=== PATIENT | female | born 1990 | race African-American/Black ===

== ENCOUNTER 2020-06-13 09:07 | Emergency (ER) | payer BC, SELFPAY ==
--- NOTE | ~2020-06-13 | XR_ITS ---
EXAMINATION: XR chest 2V DATE: 06/13/2020 09:24 INDICATION: Chest pain with deep breath. TECHNIQUE: Frontal and lateral views of the chest were obtained. COMPARISON: None. FINDINGS: The chest demonstrates clear lungs without pneumonia, pleural effusion, or pneumothorax. Th e heart size is normal. IMPRESSION: 1. No acute cardiopulmonary disease. Reviewed, dictated and finalized at location A.
[2020-06-13 09:14] VITALS: BP 121/69; PULSE 70; RESP 16; TEMP 36.6; O2SAT 100
[2020-06-13 09:28] VITALS: BP 121/69; PULSE 70; RESP 16; TEMP 36.6; O2SAT 100
--- NOTE | 2020-06-13 09:28 | ED.URI ---
HPI - URI/Sore Throat General Chief Complaint: Upper Respiratory Infection Stated Complaint: chest pain with deep breathing Source: patient and RN notes reviewed Limitations: no limitations History of Present Illness HPI Narrative: The patient, non-smoker/nondrinker, presents with chest tightness. Patient states her mom sent her in for 2-day history of bilateral upper chest tightness . Symptoms are mild, there is no pain at rest and only with deep breathing or bending. No fever, chills, shortness of breath, wheezing/sneezing, calf pain/edema, BCP use, URI?sinusitis, sore throat, earache. 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 She is very active and has been working out, but no upper body exercises and is unlike previous chest discomforts. Advised to go to higher-level care facility to higher level testing if not improved , because for early diagnosis of serious problems [acute coronary syndrome, PE, etc.], clear specific symptoms do not develope until later Related Data Allergies Allergy/AdvReac Type Severity Reaction Status Date / Time No Known Allergies Allergy Mild Verified 11/26/07 17:38 Review of Systems Review of Systems: Narrative: General/Constitutional: No weight loss,fever Eyes: N0: Redness,discharge Ears/Nose/Throat: No: Epistaxis,ear discharge Respiratory: Denies: Hemoptysis Gastrointestinal: No Vomiting, Bleeding-rectal Skin: No Lumps, eruption Neurologic: No Focal Weakness,Sz Hematologic: Denies: Petechiae/Purpura Psychiatric: No: Suicida ideationl All Other Systems: Reviewed and Negative [facility] Comments At time of signature, agree with nursing past medical, surgical, social and family history. There is no relevant family history pertinent to the presenting complaint Exam Narrative: Exam Narrative: General Appearance: Well appearing, conjunctiva clear Ears: External ear normal Nose: Normal nose Mouth/Throat: Normal appearing, Normal lips Neck: Supple Respiratory: Airway patent, No respiratory distress Cardiovascular: RRR, nontender chest wall Musculoskeletal: Full ROM, no calf pain/edema Skin: Warm, Dry Neurological: A&O x3, normal affect Course Course Emergency Course: EKG sinus rhythm at 59, CA 0.139, QRS 0.073 [place] 20 Films visualized, interpreted by radiologist, agree, normal see report Vital Signs Vital signs: Vital Signs Temperature 98 F 06/13/20 09:14 Pulse Rate 70 06/13/20 09:14 Respiratory Rate 16 06/13/20 09:14 Blood Pressure 121/69 06/13/20 09:14 Pulse Oximetry 100 06/13/20 09:14 Temperature 98 F 06/13/20 09:28 Pulse Rate 70 06/13/20 09:28 Respiratory Rate 16 06/13/20 09:28 Blood Pressure 121/69 06/13/20 09:28 Pulse Oximetry 100 06/13/20 09:28 Discharge Plan Discharge Clinical Impression: Chest pain, pleuritic Patient Disposition: Home, Self-Care Condition: Stable Prescriptions: New azithromycin 250 mg tablet See Rx Instructions .ROUTE .COMPLEX Qty: 6 RF: 0 indomethacin 50 mg capsule 50 mg PO BID Qty: 20 RF: 1 Other Ambulatory Orders: SARS-CoV-2 RNA, Qual RT-PCR (Routine) Location: Determined by Patient Ordered By: Rolan Maher Follow-up/Referrals: PHYSICIAN,TRANSFER MAN [Primary Care Provider] -
--- NOTE | 2020-06-13 09:51 | ECG_ITS ---
Measurements Intervals [place] Rate: 59 P: -3 IA: 139 QRS: 17 QRSD: 73 T: 24 QT: 407 QTc: 404 Interpretive Statements SINUS BRADYCARDIA WITH SINUS ARRHYTHMIA INCOMPLETE RIGHT BUNDLE BRANCH BLOCK BORDERLINE ECG Electronically Signed On 06-13-2020 10:59:38 CDT by Hudson Hanson D.O.
== END 2020-06-13 10:34 | disposition home or self-care (01) ==
PROVIDERS: Emergency Provider Emergency Medicine
DX: R07.81 Pleurodynia (principal); I45.10 Unspecified right bundle-branch block
CPT/HCPCS: 71046; 93005; 99213; G0463

== ENCOUNTER 2021-02-12 13:01 | Emergency (ER) | payer BC, SELFPAY ==
[2021-02-12 13:06] VITALS: BP 114/76; PULSE 78; RESP 16; TEMP 36.7; O2SAT 99
--- NOTE | 2021-02-12 13:25 | ED.URI ---
HPI - URI/Sore Throat General Chief Complaint: Upper Respiratory Infection Stated Complaint: COUGH/TIGHT CHEST Time Seen by Provider: 02/12/21 13:25 Source: patient and RN notes reviewed Mode of arrival: ambulatory Limitations: no limitations History of Present Illness HPI Narrative: 30-year-old female presents with concern for 2 to 3-day history of cough, chest congestion and chest tightness, reports left ear canal pain. She reports scratchy throat, denies nasal congestion or sore throat. Reports last night she felt hot and sweaty, she did not take her temperature. She has been vaccinated for Covid. MD elicited complaint: cough and other (Chest congestion) Related Data Allergies Allergy/AdvReac Type Severity Reaction Status Date / Time No Known Allergies Allergy Mild Verified 11/26/07 17:38 Review of Systems Review of Systems: CONSTITUTIONAL: Denies chills. Reports malaise, sweats, possible fever. EYES: Denies visual changes, redness, or discharge. ENT: Denies rhinorrhea, congestion, sinus pain, and sore throat. Reports left ear canal pain CARDIOVASCULAR: Denies chest pain, palpitations, or edema. RESPIRATORY: Reports cough, chest congestion and tightness. Denies dyspnea. GASTROINTESTINAL: Denies abdominal pain, nausea, vomiting, diarrhea SKIN: Denies rash or itching. MUSCULOSKELETAL: Denies myalgia. NEUROLOGIC: Denies headache. All systems reviewed & are unremarkable except as noted in HPI and below PMFSH Comments At time of signature, agree with nursing past medical, surgical, social and family history. There is no relevant family history pertinent to the presenting complaint Exam Narrative: GENERAL: Well-appearing, well-nourished, and in no acute distress. HEAD: Normocephalic EYES: PERRLA, conjunctivae clear ENT: Nares alhaji, no discharge. Mucous membranes moist. TM pearly jeffries with dull light reflex bilaterally; left tragal tenderness with external auditory canal erythema and edema. Oropharynx not erythematous without lesions. Tonsils not enlarged and without exudate, no drooling, no hoarseness, no trismus, uvula midline. NECK: Supple. No lymphadenopathy CHEST: Clear to auscultation, breath sounds equal. No wheezing, rhonchi, rales, or stridor. No respiratory distress, speaks in full sentences. HEART: Regular rate and rhythm. No murmur heard. SKIN: Warm, dry, no rash. NEURO: Alert and oriented x3. PSYCH: Normal mood and affect Course Course Emergency Course: Patient is aware of diagnosis, understands and agrees to treatment plan. Anticipatory guidance given. Patient agrees to follow-up as directed and is aware of reasons to seek care at the emergency department. Portions of this record may have been created with voice recognition software Vital Signs Vital signs: Vital Signs Temperature 98.1 F 02/12/21 13:06 Pulse Rate 78 02/12/21 13:06 Respiratory Rate 16 02/12/21 13:06 Blood Pressure 114/76 02/12/21 13:06 Pulse Oximetry 99 02/12/21 13:06 Temperature 98.1 F 02/12/21 13:06 Pulse Rate 78 02/12/21 13:06 Respiratory Rate 16 02/12/21 13:06 Blood Pressure 114/76 02/12/21 13:06 Pulse Oximetry 99 02/12/21 13:06 Reviewed. MDM - URI/Sore Throat MDM Narrative Medical decision making narrative: Differential diagnosis considered: Forman virus, strep pharyngitis, allergic rhinitis, upper respiratory tract infection, sinusitis, rhinosinusitis, nasopharyngitis. viral pharyngitis, otitis media, otitis externa, pneumonia, bronchitis, viral cough syndrome, viral syndrome, and influenza. Exam findings show no acute concerns or changes; patient is non-toxic appearing and is in no distress. Patient is appropriate for outpatient treatment and follow-up. Lab Data Attestation: I reviewed the patient's lab results. Critical Care Time Critical Care Time Critical Care Time: No Discharge Plan Discharge Clinical Impression: Otitis externa Qualifiers: Otitis externa type: unspecified type Chron
== END 2021-02-12 13:49 | disposition home or self-care (01) ==
PROVIDERS: Emergency Provider Nurse Practitioner
DX: H60.502 Unspecified acute noninfective otitis externa, left ear (principal); Z20.822 Contact with and (suspected) exposure to COVID-19
CPT/HCPCS: 87426; 99213; C9803; G0463

== ENCOUNTER 2021-02-15 11:25 | Emergency (ER) | payer BC, SELFPAY ==
--- NOTE | 2021-02-15 11:34 | ED.EAR ---
HPI - Ear Problem General Chief complaint: Ear Stated complaint: Ear swelling Time Seen by Provider: 02/15/21 11:34 Source: patient, family and RN notes reviewed History of Present Illness HPI Narrative: Patient is a 30-year-old female who presents the urgent care with complaints of left ear swelling, inability to hear out of the ear. Patient states that she was seen at the urgent care on Thursday for upper respiratory symptoms and they gave her ciprofloxacin eardrops. Patient states that she was unable to afford the eardrops and now her ear has become increased in swelling and pain. Patient denies of any fevers, nausea or vomiting. Denies any other upper respiratory complaints. Patient has been using [id number] pain medication for pain relief. No other acute complaints. No acute distress noted. Patient aware of the plan of care. Some parts of this dictation were generated by voice recognition software and may contain typographical and/or grammatical inaccuracies. Related Data Allergies Allergy/AdvReac Type Severity Reaction Status Date / Time No Known Allergies Allergy Mild Verified 02/15/21 11:41 Review of Systems Review of Systems: CONSTITUTIONAL: Denies fever, chills, or sweats. EYES: Denies visual changes, redness, or discharge. ENT: Denies rhinorrhea, congestion, sore throat. Reports of left ear pain and swelling with inability to hear out of the left ear CARDIOVASCULAR: Denies chest pain, palpitations, or edema. RESPIRATORY: Denies cough or dyspnea. GASTROINTESTINAL: Denies abdominal pain, nausea, vomiting, or diarrhea. GENITOURINARY: Denies dysuria or hematuria. SKIN: Denies rash or itching. MUSCULOSKELETAL: Denies back pain, joint pain, or myalgia. NEUROLOGIC: Denies headache, numbness, or weakness. All other systems reviewed are negative, except as documented in HPI. PMFSH Comments At the time of my signature, I reviewed and agree with the nursing past medical, surgical, social, and family history. There is no relevant family history pertinent to the patient complaint. Exam Narrative: GENERAL: This is a well-nourished, well-developed patient, in no apparent distress. HEAD: normocephalic, atraumatic. EYES: PERRL. Sclera clear/white. Vision is grossly intact. EARS: Right external ears normal, right auditory canals clear and without drainage, right TM normal without perforation. Moderate to severe edema/erythema with significant yellow drainage from the left ear canal. Mild to moderate erythema and edema to the left external ear. Hearing grossly intact. NOSE: External nose normal with no obvious nasal discharge, nares without redness, no rhinorrhea. THROAT: Mucous membranes moist, posterior pharynx clear. Mild postnasal drainage NECK: Neck supple CARDIOVASCULAR: Regular rate and rhythm without murmurs, gallops, or rubs. RESPIRATORY: Clear to auscultation. Breath sounds equal bilaterally. No wheezes, rales, or rhonchi. SKIN: warm, intact with no suspicious lesions or rash, good texture and turgor. NEURO: awake, alert, and oriented to person, place and time. There were no obvious focal neurologic abnormalities. EXTREMITIES: No clubbing, cyanosis, or edema. Course Vital Signs Vital signs: Vital Signs Temperature 97.6 F 02/15/21 11:45 Pulse Rate 85 02/15/21 11:45 Respiratory Rate 12 02/15/21 11:45 Blood Pressure 112/88 02/15/21 11:45 Pulse Oximetry 100 02/15/21 11:45 Temperature 97.6 F 02/15/21 11:45 Pulse Rate 85 02/15/21 11:45 Respiratory Rate 12 02/15/21 11:45 Blood Pressure 112/88 02/15/21 11:45 Pulse Oximetry 100 02/15/21 11:45 Reviewed Medical Decision Making MDM Narrative Medical decision making narrative: Advised the patient to complete the oral antibiotic regimen as prescribed. Be sure to eat and drink with the medication. May use a cool or warm wash rag to the outside of the ear as needed for comfort. Use the eardrops to the affected ear as directed, wipin
[2021-02-15 11:45] VITALS: BP 112/88; PULSE 85; RESP 12; TEMP 36.4; O2SAT 100
== END 2021-02-15 12:22 | disposition home or self-care (01) ==
PROVIDERS: Emergency Provider Nurse Practitioner Family
DX: H60.92 Unspecified otitis externa, left ear (principal)
CPT/HCPCS: 99213; G0463

== ENCOUNTER 2021-03-20 16:41 | Emergency (ER) | payer BC, SELFPAY ==
--- NOTE | ~2021-03-20 | US_ITS ---
EXAMINATION: US OB <= 14 weeks fetus EXAM DATE: 03/20/2021 17:36 INDICATION: Low abdominal pain, . 1st trimester. TECHNIQUE: Pelvic obstetrical transabdominal sonogram was performed by a technologist. There are mu ltiple grayscale and Doppler images available for interpretation. There are no earlier studies of th is gestation for comparison. FINDINGS: Uterus measures 8.1 x 6.0 x 4.8 cm. There is intrauterine gestation sac. pole with heart rate confirmed at 115 beats per minute. The 3 mm crown-rump length corresponds to estimated ge stational age by ultrasound of 6 weeks 0 days, estimated date of confinement 11/13. Yolk sac is ident ified. There is small to moderate size subchorionic hemorrhage measuring 2 cm in diameter by 0.8 cm in thickness. The ovaries are identified, morphologically normal with Doppler flow confirmed. IMPRESSION: Live intrauterine gestation, small to moderate size subchorionic hematoma. Reviewed, dictated and finalized at location G. N NURSE IMPRESSION: Live intrauterine gestation, small to moderate size subchorionic h ematoma.
[2021-03-20 16:48] VITALS: BP 127/85; PULSE 93; RESP 17; TEMP 36.4; O2SAT 99
[2021-03-20 17:10] LABS: Basophils Percent Auto 0.3 % (0.2-1.2); Eosinophils Absolute Auto 0.1 K/mm3 (0-0.3); Hematocrit 38.6 % (37.0-47.0); Hemoglobin 12.9 g/dL (12.0-15.0); Immature Granulocyte Absolute 0.01 K/mm3 (0.00-0.031); Immature Granulocyte Percent A 0.1 % (0-0.5); Lymphocytes Absolute Auto 2.59 K/mm3 (0.9-3.2); Lymphocytes Percent Auto 35.6 % (18.3-44.2); Mean Corpuscular HGB Conc 33.4 g/dl (32-36); Mean Corpuscular Hemoglobin 32.2 pg (26-34); Mean Corpuscular Volume 96.3 fl (80-100); Monocytes Absolute Auto 0.6 K/mm3 (0.1-0.6); Monocytes Percent Auto 8.1 % (2.6-8.5); Neutrophils Percent Auto 54.9 % (45.5-73.1); Platelet Count Result 215 k/mm3 (150-375); Red Blood Count 4.01 M/mm3 (4.2-5.4); Red Cell Distribution Width 12.1 % (11.5-14.5); White Blood Count 7.3 K/mm3 (4.5-10.0)
[2021-03-20 17:22] LABS: Alanine Aminotransferase 14 U/L (4-35); Albumin Level 4.6 g/dL (3.5-5.1); Alkaline Phosphatase 46 U/L (38-126); Anion Gap 5 mmol/L (8-16); Aspartate Amino Transferase 22 U/L (14-36); Bilirubin,Total 0.4 mg/dL (0.2-1.3); Blood Urea Nitrogen 13 mg/dL (7-17); Calcium 9.6 mg/dL (8.4-10.2); Carbon Dioxide 26 mmol/L (22-30); Chloride 104 mmol/L (98-107); Estimated CRCL calculation 92 ml/min; Estimated Glomerular Filt Rate > 60; Glucose 92 mg/dL (65-110); Lipase 78 U/L (23-300); Potassium 3.5 mmol/L (3.4-5.0); Sodium 135 mmol/L (137-145)
[2021-03-20 17:23] LABS: Add Urine Microscopic? NO; Appearance Urine Clear (Clear); Bilirubin Urine Negative (Negative); Blood Urine Negative (Negative); Color Urine Yellow (Yellow); Glucose Urine UA Negative (Negative); Ketones Urine Negative (Negative); Leukocyte Esterase Ur Negative LEU/UL (Negative); Nitrate Urine Negative (Negative); Protein Urine Negative (Negative); Specific Grav Ur 1.026 (1.001-1.035); Urobilinogen Urine Negative mg/dL (<2.0)
--- NOTE | 2021-03-20 17:51 | ED.ABDPAIN ---
HPI - Abdominal Pain General Chief Complaint: Abdominal Pain Stated Complaint: abd pain Time Seen by Provider: 03/20/21 16:47 Source: patient Mode of arrival: ambulatory Limitations: no limitations History of Present Illness HPI narrative: 30-year-old otherwise healthy here with the complaints of lower abdominal pain since early this morning. She denies any nausea, vomiting or diarrhea. No history of fever or chills. She denies urinary symptoms. She said she is in with the same partner for last 9 years has never been before. She denies any vaginal discharge or bleeding. MD elicited complaint: abdominal pain Pertinent past history: none Onset (ago): day(s) (1) Pain Consistency: constant Location: suprapubic Severity: moderate Quality: aching Radiation: none Migration to: no migration Relieving factors: nothing Related Data Home Medications Medication Instructions Recorded Confirmed No Home Medications 03/20/21 03/20/21 Allergies Allergy/AdvReac Type Severity Reaction Status Date / Time No Known Allergies Allergy Mild Verified 03/20/21 16:51 Review of Systems Review of Systems: All systems reviewed & are unremarkable except as noted in HPI and below Constitutional: Constitutional: Reports no additional constitutional complaints Eyes: Eyes: Reports no additional eye complaints ENT: Reports system reviewed and no additional complaints, except as documented Cardiovascular: Cardiovascular: Reports no additional cardiovascular complaints Respiratory: Respiratory: Reports no additional respiratory complaints Gastrointestinal: Gastrointestinal: Reports as per HPI Musculoskeletal: Musculoskeletal: Reports no additional musculoskeletal complaints Integumentary/Breasts: Skin/Breast: Reports system reviewed and no additional complaints, except as docu Neurologic: Reports system reviewed and no additional complaints, except as documented Exam Narrative: GENERAL: Well-appearing, well-nourished, and in no acute distress. HEAD: Normocephalic, atraumatic. EYES: PERRLA and EOMI. NECK: Supple. CHEST: Clear to auscultation. No respiratory distress. HEART: Regular rate and rhythm. No murmur heard. Normal peripheral pulses. ABDOMEN: Soft, nontender, nondistended, normal active bowel sounds. EXTREMITIES: Normal range of motion. No edema. SKIN: Warm, dry, no rash. NEURO: No focal deficits. Alert and oriented x3. PSYCH: Normal mood and affect. Course Course Emergency Course: Inform patient about her lab work, ultrasound findings. Advised her to drink plenty of fluids as tolerated take Tylenol as needed for pain. Follow-up with DIRECTOR OF ATHLETICS. Vital Signs Vital signs: Vital Signs Temperature 36.4 C 03/20/21 16:48 Pulse Rate 93 03/20/21 16:48 Respiratory Rate 17 03/20/21 16:48 Blood Pressure 127/85 03/20/21 16:48 Pulse Oximetry 99 03/20/21 16:48 Temperature 36.4 C 03/20/21 16:48 Pulse Rate 93 03/20/21 16:48 Respiratory Rate 17 03/20/21 16:48 Blood Pressure 127/85 03/20/21 16:48 Pulse Oximetry 99 03/20/21 16:48 MDM - Abdominal Pain MDM Narrative Medical decision making narrative: With a history of lower abdominal pain LMP unknown new bedside test as well as routine lab work. Her examination is unremarkable with wait for lab work. Differential Diagnosis Differential diagnosis: Likely abdominal pain, constipation and other (UTI, , ectopic) Medical Records Attestation: I reviewed the patient's medical records. Lab Data Result diagrams: 03/20/21 16:58 03/20/21 16:58 Labs: Lab Results 03/20/21 03/20/21 03/20/21 Range/Units 16:58 16:58 16:58 WBC 7.3 (4.5-10.0) K/mm3 RBC 4.01 L (4.2-5.4) M/mm3 Hgb 12.9 (12.0-15.0) g/dL Hct 38.6 (37.0-47.0) % MCV 96.3 (80-100) fl MCH 32.2 (26-34) pg MCHC 33.4 (32-36) g/dl RDW 12.1 (11.5-14.5) % Plt Count 215 (150-375) k/mm3 MPV 11.0 H (
[2021-03-20 18:15] VITALS: BP 128/77; PULSE 90; RESP 14; TEMP 36.6; O2SAT 99
== END 2021-03-20 18:16 | disposition home or self-care (01) ==
PROVIDERS: Emergency Provider Family Medicine
DX: O26.899 Other specified pregnancy related conditions, unspecified trimester (principal); R10.30 Lower abdominal pain, unspecified; Z3A.00 Weeks of gestation of pregnancy not specified
CPT/HCPCS: 36415; 76801; 80053; 81003; 81025; 83690; 84702; 85025; 99284

== ENCOUNTER 2021-11-05 16:11 | Inpatient (IN) | payer MEDICAID, SELFPAY ==
[2021-11-05] VITALS (8 sets, daily range): BP systolic 110–131; BP diastolic 74–85; PULSE 66–78; RESP 16–18; TEMP 36.6–37; BMI 26.4
--- NOTE | 2021-11-05 16:11 | LDADM ---
This patient, Gabrielle Stallworth, was admitted to Labor/Delivery/Recovery 102 on 11/05/21 at 16:11. Plans for labor, pain management and were discussed with patient. Patient/family oriented to hospital policies and general routines including ID bracelet, bed and alarms, visiting hours, pain management, procedures, bathroom and other care routines, personal items, smoking policy, room service/diet and guest tray routines, infant security routines, and visiting hours. Patient/Family are encouraged to report perceived risks to care and to ask questions if they do not understand what they are told or what they should do. See OBIX for further documentation.
[2021-11-05 17:24] LABS: Basophils Percent Auto 0.1 % (0.2-1.2); Eosinophils Percent Auto 0.5 % (0-4.4); Hematocrit 36.4 % (37.0-47.0); Immature Granulocyte Absolute 0.03 K/mm3 (0.00-0.031); Immature Granulocyte Percent A 0.4 % (0-0.5); Lymphocytes Absolute Auto 2.08 K/mm3 (0.9-3.2); Lymphocytes Percent Auto 24.9 % (18.3-44.2); Mean Corpuscular Hemoglobin 31.2 pg (26-34); Mean Corpuscular Volume 94.5 fl (80-100); Mean Platelet Volume 11.4 fl (7.4-10.4); Monocytes Absolute Auto 0.8 K/mm3 (0.1-0.6); Monocytes Percent Auto 9.7 % (2.6-8.5); Neutrophils Absolute Auto 5.4 K/mm3 (1.3-6.7); Neutrophils Percent Auto 64.4 % (45.5-73.1); Platelet Count Result 229 k/mm3 (150-375); Red Blood Count 3.85 M/mm3 (4.2-5.4); Red Cell Distribution Width 13.5 % (11.5-14.5); White Blood Count 8.4 K/mm3 (4.5-10.0)
[2021-11-05] MEDS: DINOPROSTONE 10 MG VAG INSERT VAGINAL (17:44)
--- NOTE | 2021-11-05 18:50 | PM.IMHP ---
H&P: HPI History of Present Illness Date/Time: 11/05/21 18:50 Chief Complaint: induction of labor Narrative: 31yo G1 at 39.3 IOL elective. History of infertility x9 years. GBS neg. Had COVID this / Review of Systems Review of Systems: All systems reviewed & are unremarkable except as noted in HPI and below PMFSH Family History Family History (Updated 10/16/21 @ 13:43 by Kevon Williamson RN) Father Heart attack Diabetes mellitus Social History Social History Smoking status: Never smoker Second hand tobacco smoke exposure: No Substance use: never Spiritual care concerns: No Meds Home Medications and Allergies Home Medications Medication Instructions Recorded Confirmed Type No Home Medications 03/20/21 03/20/21 History Allergies Allergy/AdvReac Type Severity Reaction Status Date / Time No Known Allergies Allergy Mild Verified 10/16/21 13:42 Vital Signs Vital Signs - 24 hr 11/05/21 16:43 11/05/21 17:27 Pulse Rate 66 Blood Pressure 110/74 Oxygen Delivery Room Air Exam Const: General: no acute distress Resp: Effort & Inspection: normal respiratory effort Auscultation: clear to auscultation bilaterally Cardio: Rate: regular rate Rhythm: regular rhythm GI: GI Palp: Yes Soft to palpation Extrem: General: normal to inspection H&P: Results Labs Labs: Short CBC 11/05/21 Range/Units 17:16 WBC 8.4 (4.5-10.0) K/mm3 Hgb 12.0 (12.0-15.0) g/dL Hct 36.4 L (37.0-47.0) % Plt Count 229 (150-375) k/mm3 Assessment and Plan Assessment and plan (1) Term : Code(s): Z34.90 - Encounter for supervision of normal , unspecified, unspecified trimester Status: Acute Plan gbs neg FHT category 1 cervidil then pitocin high dose
--- NOTE | 2021-11-05 21:01 | P.PNAN_ITS ---
Anes - Eval Pre Procedure Procedure: labor epidural Date/Time: 11/05/21 21:01 Pre Op Diagnosis: iol Patient Data Age: 31 Gender: F Height: 1.63 m Weight: 70 kg Last Vital Signs Pulse 66 11/05/21 16:43 BP 110/74 11/05/21 16:43 O2 Del Method Room Air 11/05/21 17:27 Allergies Allergy/AdvReac Type Severity Reaction Status Date / Time No Known Allergies Allergy Mild Verified 10/16/21 13:42 Home Medications Medication Instructions Recorded Confirmed Type No Home Medications 03/20/21 03/20/21 History Laboratory Tests 11/05/21 11/05/21 11/05/21 17:16 17:16 17:58 WBC 8.4 K/mm3 K/mm3 (4.5-10.0) RBC 3.85 M/mm3 L M/mm3 (4.2-5.4) Hgb 12.0 g/dL g/dL (12.0-15.0) Hct 36.4 % L % (37.0-47.0) MCV 94.5 fl fl (80-100) MCH 31.2 pg pg (26-34) MCHC 33.0 g/dl g/dl (32-36) RDW 13.5 % % (11.5-14.5) Plt Count 229 k/mm3 k/mm3 (150-375) MPV 11.4 fl H fl (7.4-10.4) Immature Gran % (Auto) 0.4 % % (0-0.5) Neut % (Auto) 64.4 % % (45.5-73.1) Lymph % (Auto) 24.9 % % (18.3-44.2) Bailey % (Auto) 9.7 % H % (2.6-8.5) Eos % (Auto) 0.5 % % (0-4.4) Baso % (Auto) 0.1 % L % (0.2-1.2) Lymph # (Auto) 2.08 K/mm3 K/mm3 (0.9-3.2) Bailey # (Auto) 0.8 K/mm3 H K/mm3 (0.1-0.6) Eos # (Auto) 0.0 K/mm3 K/mm3 (0-0.3) Baso # (Auto) 0.0 K/mm3 K/mm3 (0.0-0.1) Abs Immat Gran (auto) 0.03 K/mm3 K/mm3 (0.00-0.031) Absolute Neuts (auto) 5.4 K/mm3 K/mm3 (1.3-6.7) Absolute Nucleated RBC 0.0 K/mm3 K/mm3 (0.0-0.012) Nucleated RBC % 0.0 % % (0.0-0.2) RPR Pending Blood Type A Positive Antibody Screen Negative Patient hx anesthesia problems: none Family hx anesthesia problems: none Results Review: All pre-operative results and documents have been reviewed as part of the pre- operative evaluation. [facility] Family History Family History Father Heart attack Diabetes mellitus Social History Social History Smoking status: Never smoker Second hand tobacco smoke exposure: No Substance use: never Spiritual care concerns: No Exam Day of Procedure 11/05/21 21:01 Patient weight: overweight Heart: regular rate and rhythm Lungs: normal air movement Airway: Mallampati scale class II Neurological: alert and oriented
[2021-11-06] VITALS (157 sets, daily range): BP systolic 77–134; BP diastolic 41–108; PULSE 59–167; RESP 16–18; TEMP 36.6–37; O2SAT 92–100
[2021-11-06] MEDS: LACTATED RINGERS 1,000 ML 125 ML IV CONT ×2 (02:16→04:50)
[2021-11-06] MEDS: TERBUTALINE SULFATE 1 MG/ML VIAL 0.25 MG SUB-Q (05:12)
[2021-11-06 05:31] LABS: Rapid Plasma Reagin Non-Reactive (NonReactive)
[2021-11-06] MEDS: PHENYLEPHRINE 1,000 MCG/10 ML SYRINGE 100 MCG IV PUSH ×2 (06:05→08:55)
--- NOTE | 2021-11-06 06:29 | PM.OBPNLAB ---
Pain Control Date/time seen: 11/06/21 06:29 Pain control: tolerating well and epidural Pelvic Exam Dilation (cm): 6 Effacement (%): 50 station: -3 Amniotic membrane status: Ruptured Comments: clear Status status: Category ll Comments: moderate variability, variable decelerations Assessment and Plan Assessment: induction ongoing Plan: continuous present management
--- NOTE | 2021-11-06 10:32 | PM.OBPNLAB ---
Pain Control Date/time seen: 11/06/21 10:32 Pain control: tolerating well and epidural Comments: nausea Pelvic Exam Dilation (cm): 6 Effacement (%): 70 station: -3 Amniotic membrane status: Ruptured Status status: Category ll Comments: moderate variability with variables and lates, neither recurrent. accels also present. no cervical change since AROM 4 hours ago. Assessment and Plan Comments: iupc, amnioinfusion for variables FHT category 2 contractions not adequate will start pitocin slowly discussed possibility of CS if baby does not tolerate pitocin/labor.
[2021-11-06] MEDS: SODIUM CHLORIDE 0.9% IV 300 ML 600 ML I-UTERINE (10:55)
[2021-11-06] MEDS: OXYTOCIN 30 UNITS/NS 500 ML 30 UNITS/500 ML BAG 6 UNITS IV CONT (11:20)
--- NOTE | 2021-11-06 13:34 | PM.OBPRVD ---
OB - Delivery Note Procedure Delivery date: 11/06/21 Procedure: Intrapartal Events: Decelerations Induction method: AROM, Per Pitocin Protocol and Per Cervidil Protocol Delivery monitor: External FHT and Internal Uterine Route of delivery: Laceration Description: Perineal - 2nd Degree Delivery repair: vicryl Quantitative Blood Loss (ml): 110 Anesthesia type: Epidural Disposition: Floor Narrative: With adequate expulsive efforts by the mother, the baby's head was delivered OA. The baby's anterior shoulder was delivered under the pubic symphysis without difficulty. The posterior shoulder and the rest of the baby delivered without difficulty. The infant was placed on the mothers chest and suctioned and stimulated. The cord was clamped and cut after 30 seconds. Mother and baby both stable. Baby Date of : 11/06/21 Time of : 13:15 Weeks of gestation at delivery: 39 Infant gender: Male Weight (pounds): 6 Weight (ounces): 5 presentation: vertex Placenta delivery description: Spontaneous Cord Vessel Description: 3 Vessels and Delayed Cord Clamping score one minute: 7 score five minutes: 9
[2021-11-06] MEDS: OXYTOCIN 30 UNITS/NS 500 ML 30 UNITS/500 ML BAG 125 UNITS IV CONT (14:15)
--- NOTE | 2021-11-06 17:00 | PC.NURSE ---
Patient transferred to post room #284 via wheelchair. Support person present. Oriented to unit, room, information board, rooming in, admission packet and security measures. Patient verbalizes understanding.
[2021-11-06] MEDS: IBUPROFEN 600 MG TABLET PO (19:01)
[2021-11-07] VITALS: BP 104/55; PULSE 73; RESP 18; TEMP 36.8
[2021-11-07 04:30] VITALS: BP 101/58; PULSE 68; RESP 18; TEMP 36.8
[2021-11-07] MEDS: IBUPROFEN 600 MG TABLET PO ×3 (04:33→23:15)
[2021-11-07] MEDS: ACETAMINOPHEN 325 MG TABLET 650 MG PO ×3 (04:34→18:51)
[2021-11-07 05:01] LABS: Hematocrit 30.4 % (37.0-47.0)
--- NOTE | 2021-11-07 08:15 | PM.OBPNVD ---
OB - PN: Subj Subjective Date/time seen: 11/07/21 08:15 Patient comments: no complaints, pain well controlled, incisional pain, tolerating diet and flatus present OB - PN: Obj Data Labs CBC & Chem 7: 11/07/21 04:27 Labs: Laboratory Results - last 24 hr 11/07/21 04:27 Hgb 10.0 L Hct 30.4 L OB - PN A/P Plan day: 1 Plan: routine care Comments: No problems, routine care Time Spent With Patient Time: Total time spent is greater than 50% in coordination of care (as documented) at patient's floor/unit and/or counseling patient: Exam Const: General: comfortable, no acute distress and alert Resp: Effort & Inspection: normal respiratory effort Auscultation: no crackles, no rales and no rhonchi Cardio: Rate: regular rate Heart sounds: no click, no murmurs and no rubs GI: Inspection: non-distended GI Palp: No Tenderness to palpation present (GI) Auscultation: normal bowel sounds Other: Incision - CDI Extrem: General: normal to inspection, no pedal edema and no calf tenderness
[2021-11-07 08:40] VITALS: BP 109/74; PULSE 70; RESP 16; TEMP 36.6; O2SAT 100
[2021-11-07] MEDS: MULTIVIT/MIN/PREN/FOL AC/IRON TABLET 1 TAB PO (10:08)
[2021-11-07] MEDS: DOCUSATE SODIUM 100 MG CAPSULE PO ×2 (10:08→15:39)
[2021-11-07 12:10] VITALS: BP 109/67; PULSE 78; RESP 16; TEMP 36.5; O2SAT 100
--- NOTE | 2021-11-07 12:46 | WPDANLDPN2 ---
Anes-Prog Note L&D Date/Time: 11/07/21 12:46 Neuro status: Neuro function grossly intact. Cardiovascular status: normal Respiratory status: normal Airway patency: baseline Mental status: baseline Post-Op hydration status: normal Vital Signs: Last Vital Signs Temp 36.5 C 11/07/21 12:10 Pulse 78 11/07/21 12:10 Resp 16 11/07/21 12:10 BP 109/67 11/07/21 12:10 Pulse Ox 100 11/07/21 12:10 O2 Del Method Room Air 11/07/21 04:00 Pain score (VAS): 2 I/O: Intake & Output 11/06/21 11/07/21 11/07/21 23:59 07:59 15:59 Intake Total 240 Balance 240 Post-procedural complaints: none Patient feedback: Patient satisfied with anesthetic care.
--- NOTE | 2021-11-07 15:29 | PC.NURSE ---
[id number] Introductions were made, then consulted with patient to assess needs related to . Mother led the conversation with her?plans to feed?her infant and the?experience so far. Resources provided for inpatient and outpatient services using a resource guide and mom/baby guide. Mother voiced understanding of information and requests assistance. 1420 - Consulted. Mom is in the restroom. Encouraged skin to skin with mother when she is finished and call for assistance. [id number] Introductions were made, then consulted with patient to assess needs related to . Mother led the conversation with her experience feeding her infant so far. Mother works well with her with encouragement and education. Encouraged understanding of the benefits of skin to skin (unwrapping and placing vertically on her chest), responsive feeding and how to watch for early feeding signs, frequency of feeding on demand about every 8-12 times in 24 hours (every 2-3 hours), milk production, hand expression with clean hands, duration of feeding, signs of adequate intake/output (using the pie demonstration) and how to record on the feeding sheet. Infant was attempted several times and would crying and not latch. Mother was reclined in bed with skin to skin on her chest given time to navigate exploring mothers chest and breast. Mother hand expressed large drops of colostrum and fed with finger feeding and a spoon. Attempted twice to latch with the nipple shield. Nipple shield provided prior to meeting RN by primary RN to mother due to ineffective . Reviewed good handwashing, cleaning the nipple shield and application. Discussed with mom the nipple shield precautions, possible complications associated with the risks and benefits. Reviewed practicing with a nipple shield, then without and how to protect the milk supply and production. Mom voiced and demonstrated understanding of the importance of hand expression, nipple stimulation and initiating a pumping schedule if continues to nurse with the shield. After an attempt with the nipple shield was detached, then latched to the left breast using laid-back modified cross cradle positioning. Reviewed positioning and ear, shoulder, hip alignment, supporting the breast, asymmetrical latch (off-center), and leading with the chin with a big open side gape. Infant was able to maintain latch without discomfort to mother. Nipple care reviewed with optimal latch and good positioning. Reviewed good handwashing when or touching the breast/nipples to prevent infection. Resources used to facilitate learning were used with the visual handouts, tool, mom and baby guide. Mother voiced understanding of responsive feedings, stimulating with skin to skin, hand expressed colostrum, touch, talking to to encourage if it has been 2 -3 hours since the start of the last , to call if does not latch or there is discomfort with . Reported to the primary RN.
[2021-11-07 18:50] VITALS: BP 115/70; PULSE 72; RESP 16; TEMP 36.4; O2SAT 99
[2021-11-08] MEDS: ACETAMINOPHEN 325 MG TABLET 650 MG PO (04:30)
--- NOTE | 2021-11-08 07:55 | P.PNOB_ITS ---
OB - PN: Subj Subjective Date/time seen: 11/08/21 07:55 Patient comments: no complaints and pain well controlled baby status: doing well and nursing well [place] feeding status: exclusively breast feeding OB - PN: Obj Data Labs CBC & Chem 7: 11/07/21 04:27 OB - PN A/P Plan day: 2 Plan: routine care and discharge home Time Spent With Patient Time: Total time spent is greater than 50% in coordination of care (as documented) at patient's floor/unit and/or counseling patient: Time with patient: less than 15 minutes Exam Narrative: NAD abdomen soft, nontender, fundus firm below the umbilicus Extremities nontender, 1+ edema
--- NOTE | 2021-11-08 07:56 | PM.OBDSVD ---
DS: Admitting Diagnosis Discharge Date 11/08/21 Admitting Diagnosis term DS: Discharge Diagnosis Discharge Diagnosis (1) , delivered: Code(s): O80 - Encounter for full-term uncomplicated delivery Status: Acute OB - DS: Summary Hospital Course Hospital Course: Gabrielle was admitted for elective IOL at 39w. She proceeded to have an uncomplicated vaginal delivery and course. She was DCed home on pp day 2. OB Procedures : Ultrasound OB Procedures Intrapartum: Spontaneous Vag Delivery OB Procedures: : None Peripartum Data Infant Delivery Method: Natural Vaginal complications: none Status at Discharge Functional status at discharge: independent ambulation Overall status at discharge: patient is back to baseline Time Spent with Patient Time attestation: Total time spent providing and/or coordinating discharge services: Exam Narrative: NAD abdomen soft, appropriately tender Ext non tender, 1+ edema Discharge Plan Discharge Attending physician on discharge: Nena Langston Discharging Clinician: Nena Langston Anticipated Discharge Date/Time: 11/08/21 07:58 Patient Disposition: Home, Self-Care Activity: pelvic rest Diet: regular Patient Instructions: Antibiotic Form Stand Alone Forms: General Discharge Information Follow-up/Referrals: Nena Langston MD [Physician] - 4 Weeks Discharge Medications: No Action No Home Medications Date of admission: 11/05/21 16:11 Primary Care Provider: PHYSICIAN,FREELANCE COPYWRITER Admitting Provider: Nena Langston Attending physician on admission: Nena Langston Condition: Stable
[2021-11-08 08:30] VITALS: BP 116/78; PULSE 78; RESP 18; TEMP 36.4; O2SAT 100
[2021-11-08] MEDS: IBUPROFEN 600 MG TABLET PO (09:41)
[2021-11-08] MEDS: DOCUSATE SODIUM 100 MG CAPSULE PO (09:41)
[2021-11-08] MEDS: MULTIVIT/MIN/PREN/FOL AC/IRON TABLET 1 TAB PO (09:42)
--- NOTE | 2021-11-08 11:47 | PC.NURSE ---
[id number] - Consulted with patient on how is going. Mother states it is painful when first latches, then improves. Mother voiced she would call when infant was ready to breastfeed. [id number] [phone] [id number] Mother led the conversation with her experience and plan to feed her so far and her ability to independently latch optimally without discomfort. Reminded parents to use good handwashing technique to prevent infection. Mother is feeding appropriately for growth of and understands stimulating infant to eat if needed. Infant has had adequate feedings in the last 24 hours (discussed with mother to encourage 8-12 times in 24 hours and doesn't need to go past 5 hours without ) meets the outcomes for weight, output and jaundice at this time. Mother states she is confident to continue effectively her infant at home or when to call for assistance and denies any additional assistance or education at this time. Mother demonstrated an effective latch to the right breast using cross cradle positioning. She states there is discomfort at first, then it gets better. Reinforced understanding of milk production, transition of milk, signs of adequate intake, prevention/relief of engorgement, responsive after visualizing feeding cues, the different methods of stimulating infant to breastfeed 2-3 hours after the start of the last feeding, community resources, medication information reviewed per [facility] and when to call a provider using the resource of the mom and baby guide/[facility] website. Mother voiced understanding of the education shared. Reported to the primary RN.
[2021-11-11 14:10] VITALS: BP 114/71; PULSE 69; RESP 18; TEMP 36.9; O2SAT 99
== END 2021-11-08 13:29 | disposition home or self-care (01) | DRG 560 ==
LOC: ANHLDR 11-06 10:19 → ANHOB2 11-06 17:19
PROVIDERS: Admitting Provider Obstetrics & Gynecology; Visit Provider Obstetrics & Gynecology
DX: O76 Abnormality in fetal heart rate and rhythm complicating labor and delivery (principal); O70.1 Second degree perineal laceration during delivery; Z3A.39 39 weeks gestation of pregnancy; Z37.0 Single live birth; Z86.16 Personal history of COVID-19
CPT/HCPCS: 36415; 85014; 85018; 85025; 86592; 86850; 86900; 86901; A9270; J2370; J2590; J2795; J3105; J7030; J7120

== ENCOUNTER 2023-09-01 18:56 | Emergency (ER) | payer OTHER, SELFPAY ==
[2023-09-01 19:10] VITALS: BP 118/77; PULSE 70; RESP 16; TEMP 36.7; O2SAT 100
--- NOTE | 2023-09-01 19:16 | ED.GENADULT ---
HPI - General Adult General Chief complaint: Ear Stated complaint: ear pain Source: patient Mode of arrival: ambulatory Limitations: no limitations History of Present Illness HPI narrative: Patient presents for evaluation of left-sided ear pain. She has associated sensation of swelling in the left ear canal. Symptom onset 2 days ago. She denies any hearing loss, tinnitus, or drainage from the ear. She was in [place] last week and was swimming at that time. No fever, chills, nausea, vomiting. No recent sick contacts to her knowledge. She is not taking any medications to assist with her symptoms. Related Data Allergies Allergy/AdvReac Type Severity Reaction Status Date / Time No Known Allergies Allergy Mild Verified 10/16/21 13:42 Review of Systems Review of Systems: CONSTITUTIONAL: Denies fever, chills, or sweats. EYES: Denies visual changes, redness, or discharge. ENT: Reports left-sided otalgia and sensation that the canal is swollen. Denies rhinorrhea, congestion, or sore throat. CARDIOVASCULAR: Denies chest pain, palpitations, or edema. RESPIRATORY: Denies cough or dyspnea. GASTROINTESTINAL: Denies abdominal pain, nausea, vomiting, or diarrhea. GENITOURINARY: Denies dysuria or hematuria. SKIN: Denies rash or itching. MUSCULOSKELETAL: Denies back pain, joint pain, or myalgia. NEUROLOGIC: Denies headache, numbness, dizziness, or weakness. PSYCHIATRIC: Denies anxiety or depression. PMFSH Past Medical History Medical History No pertinent past medical history Surgical History Surgical History No pertinent past surgical history Family History Family History Father Heart attack Diabetes mellitus Social History Social History Smoking status: Never smoker Second hand tobacco smoke exposure: No Substance use: never Living arrangements: with family Gender identity (if verbalized by the patient): Female Sexual Orientation (if Verbalized by the Patient): Straight or Heterosexual Spiritual care concerns: No Exam Narrative: GENERAL: Well-appearing, well-nourished, and in no acute distress. HEAD: Normocephalic, atraumatic. EYES: PERRLA and EOMI. ENT: Nares clear, no rhinorrhea or epistaxis. Mucous membranes moist. Oropharynx without tonsillar hypertrophy exudate or other lesions. Left tympanic membrane is erythematous and bulging. There is erythema noted to the left ear canal with associated swelling NECK: Supple. No adenopathy or masses. No carotid bruits or JVD CHEST: Clear to auscultation. No respiratory distress. No wheezes rales or rhonchi HEART: Regular rate and rhythm. No murmur heard. Normal peripheral pulses. ABDOMEN: Soft, nontender, nondistended, normal active bowel sounds. EXTREMITIES: Normal range of motion. No edema. SKIN: Warm, dry, no rash. NEURO: No focal deficits. Alert and oriented x3. PSYCH: Normal mood and affect. Course Course Emergency Course: This is a 33-year-old female who presented for evaluation of left-sided ear pain. She has evidence of both otitis media and otitis externa exam. Discharge with Augmentin and ofloxacin. Increase hydration. [id number] agents for symptom management. Follow up with primary provider. Go to the ER for worsening symptoms. Patient in agreement with plan care. Level of Care: Express Care Visit Vital Signs Vital signs: Vital Signs Temperature 36.7 C 09/01/23 19:10 Pulse Rate 70 09/01/23 19:10 Respiratory Rate 09/01/23 19:10 Blood Pressure 118/77 09/01/23 19:10 Pulse Oximetry 100 09/01/23 19:10 Oxygen Delivery Room Air 09/01/23 19:10 Temperature 36.7 C 09/01/23 19:10 Pulse Rate 70 09/01/23 19:10 Respiratory Rate 09/01/23 19:10 Blood Pre
== END 2023-09-01 19:20 | disposition home or self-care (01) ==
PROVIDERS: Emergency Provider Nurse Practitioner
DX: H66.92 Otitis media, unspecified, left ear (principal); H60.92 Unspecified otitis externa, left ear; L53.9 Erythematous condition, unspecified
CPT/HCPCS: 99213; G0463

== ENCOUNTER 2024-08-23 11:45 | Outpatient (RCR) | payer OTHER, SELFPAY ==
--- NOTE | 2024-07-05 15:03 | OTOPEVAL1 ---
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 She reports on 06/23/24 she tore her (R) labrum at practice, on 06/25/24 she dislocated her shoulder in a game. The shoulder was reduced, however the feeling in her arm/hand never returned. She was admitted to the hospital on 06/26/[address], MRI, and x-rays. CT and x-rays were all negative. MRI shows the torn labrum. EMG confirmed neurapraxia. She reports her strength is slowly returning, however her UE/hand is completely non functional. She has a 2 year old son and she is unable to open his cups, dress him, etc. She is unable to put her own hair in a pony tail. Reported Pain Level Pain Score 0: Self Report Assessment OT Clinical Summary Patient referred to OT with dx of neurapraxia following a right shoulder dislocation. She presents with intact functional shoulder strength and triceps strength. Impaired biceps, forearm rotation, wrist flexion/extension, and finger flexion/extension. 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 She is wearing a sling during the day for comfort and has a wrist immobilizer. Skilled OT indicated to maximize functional strength and use of the (R) UE through therapeutic exercise, NMES, neuro re-education, HEP instruction and progression, and functional therapeutic activities . Plan of Care Interventions Therapeutic Exercise,Manual Therapy,Neuro Re- education,Therapeutic Activities,Electrical Stimulation OT Services Indicated Yes Treatment Frequency and 2x/week for 8 visits Duration These treatments will address the objective and functional deficits as defined above. The patient will be advanced safely and appropriately in order for the patient to progress towards his/her prior level of function. Additional exercises will be introduced and as well as a comprehensive home exercise program upon discharge, if needed, ?to ensure carryover of functional gains achieved in the clinic. This treatment plan has been reviewed and agreement upon by the patient.
--- NOTE | 2024-07-05 15:03 | OPREHPOC ---
Outpatient Therapy Plan of Care This is a Multidisciplinary Plan of Care that may contain components documented by all disciplines (PT, OT, and ST.) OT Problem 1 OT Problem #1 Knowledge Deficit OT Goal 1 Goal / Goal Update Patient to be independent with instructed materials. Target Visit 8 OT Problem 2 OT Problem #2 Impaired Strength OT Goal 1 Goal / Goal Update Increase (R) UE strength for functional ADLs/use: 1. biceps strength to 4/5 2. forearm pronation and supination strength to 4/ 5 3. wrist extension strength to 4/5 4. wrist flexion strength to 3+/5 5. finger flexion and extension strength to 3+/5
--- NOTE | 2024-08-01 13:06 | PCOTNOTE ---
Patient called & cancelled scheduled appointment this date due to work.
--- NOTE | 2024-09-20 13:11 | OTOPDC ---
Assessment and note entered by Germán Cowan, OTR/L, CHT OT D/C 09/20/24 OT Clinical Summary Patient referred to OT with dx of neurapraxia following a right shoulder dislocation. Her therapy was put on hold due to patient meeting therapy goals and being independent with right shoulder HEP. Talked with patient today who reports she is going to be scheduled for surgery this fall. She does not need to return for continued therapy as she has the appropriate HEP for the shoulder in prep for surgery. D/C OT. OT Services Indicated No
== END 2024-09-20 15:22 | disposition home or self-care (01) ==
LOC: ANHGOSHOT 11:45
DX: M25.511 Pain in right shoulder (principal)
CPT/HCPCS: 97110; 97112; 97167